=== PATIENT | male | born 1960 | race Caucasian/White ===

== ENCOUNTER 2022-08-20 05:45 | Day surgery (SDC) | payer OTHER ==
[2022-08-17 15:39] VITALS: BMI 30.7
[~2022-08-20 05:45] MED LIST: PROPOFOL 10 MG/ML 20 ML VIAL IV ONE
[2022-08-20] MEDS ORDERED: SODIUM CHLORIDE 0.9% 1,000 ML IV SCH ×2 (06:09→07:45)
[2022-08-20] MEDS ORDERED: SODIUM CHLORIDE 0.9% 1,000 ML IV ONE (06:17)
[2022-08-20] MEDS ORDERED: BENZOCAINE SPRAY 1 CAN TOPICAL ONE ×2 (07:17→07:23)
[2022-08-20] MEDS ORDERED: PROPOFOL 10 MG/ML 20 ML VIAL IV ONE ×2 (07:20→10:36)
[2022-08-20 07:29] VITALS: TEMP 98.2
--- NOTE | 2022-08-20 07:44 | P.PCN ---
Date of Procedure: 08/20/22 Description of Procedure: Indication: Atrial fibrillation Procedure Description: After explaining the procedure to the patient, it's risk and complications, blood pressure, heart rate and O2 saturation were monitored. The throat was sprayed with Cetacaine. Patient received sedation per anesthesia department. The probe was introduced into the esophagus without difficulty. Images were obtained. Following that, the probe was removed. There was no immediate complication. Findings: Left atrial size is severely enlarged, left atrial appendage is normal. The ventricle size is dilated with evidence of severe global hypokinesis, ejection fraction is estimated at 25-30%. The aortic and tricuspid valve appears to be normal. Evidence of mitral valve annuloplasty was noted. Descending thoracic aorta appears to be normal. No pericardial effusion. Contrast bubble study revealed no shunting across the intra-atrial septum. Doppler: Pulse wave and color Doppler were obtained, it revealed mild to moderate mitral regurgitation with mild tricuspid and aortic regurgitation, there was no shunting by color Doppler study. Conclusion: 1. Massively enlarged left atrium with normal appearance of the left atrial appendage 2. Dilated left ventricle with severe global hypokinesis 3. But the valve repair with mild to moderate mitral regurgitation 4. Mild tricuspid and aortic regurgitation 5. No shunting across the interatrial septum Cardioversion: After performing the MIGUEL synchronized biphasic reversion using 200 J, 4 times was not successful in restoring sinus mechanism. There was no immediate complications.
[2022-08-20] MEDS ORDERED: lisinopriL 5 MG TAB PO SCH (09:00)
[2022-08-20] MEDS ORDERED: RIVAROXABAN 20 MG TAB PO SCH (09:00)
[2022-08-20] MEDS ORDERED: SPIRONOLACTONE 25 MG TAB PO SCH (09:00)
[2022-08-20] MEDS ORDERED: LEVOTHYROXINE 75 MCG TAB PO SCH (09:00)
[2022-08-20 09:45] VITALS: RESP 16
[2022-08-20 10:06] VITALS: BP 141/90; PULSE 49
[2022-08-20] MEDS ORDERED: LIDOCAINE 2% INJ 20 MG/ML (2 ML VIAL) ONE (10:36)
== END 2022-08-20 10:07 | disposition home or self-care (01) ==
LOC: CATHCVL 05:45
PROVIDERS: ATTEND Internal Medicine Interventional Cardiology
DX: I42.9 Cardiomyopathy, unspecified (principal); I08.0 Rheumatic disorders of both mitral and aortic valves; E07.9 Disorder of thyroid, unspecified; Z79.01 Long term (current) use of anticoagulants; Z95.1 Presence of aortocoronary bypass graft
CPT/HCPCS: 93312; 93320; 93325; 92960; J2704; J2001

== ENCOUNTER 2022-11-01 08:44 | Emergency (ER) | payer OTHER ==
[2022-11-01 08:53] VITALS: RESP 18
--- NOTE | 2022-11-01 10:11 | ED ---
Headache HPI - General Source: RN notes reviewed Mode of arrival: ambulatory Limitations: no limitations <BatshevaIleana - Last Filed: 11/01/22 10:36> - General Source: patient, RN notes reviewed Mode of arrival: ambulatory Limitations: no limitations <Daniel Herrera - Last Filed: 11/01/22 14:49> <Flo Kessler - Last Filed: 11/01/22 17:06> - General Chief Complaint: Headache Stated Complaint: Headache Time Seen by Provider: 11/01/22 10:07 - History of Present Illness Initial Comments: Patient is a 62 year old male who presents to the emergency department for evaluation of headache. It started just before last year. No head or neck trauma, no falls. Pain is mostly in his forehead until this weekend when it moved to the back of his head and down his shoulders. He denies double vision, blurry vision, eye pain, limb weakness, nausea, vomiting, fever, chills, cold-like symptoms. He had a CT of his brain last week at [facility] which he states was normal. He was treated for sinus infection twice by primary care provider, currently almost done with course of Augmentin. (Ileana Herman) This is a 62-year-old male presents emergency Department chief complaints of a headache. He states that has been going on for several months states of last f ew days as worsened and change in nature. He states that he used to be just frontal aspect he has been treated for acute sinusitis his been having some ongoing congestion but states that the headache is now more diffuse in nature. He does complain of mild aches. Denies any significant cough or cold-like symptoms. Patient states his initially started around the time of his thyroid medication and change in recent atrial fibrillation. Patient denies any relief with [id number] medications this is what presents to emergency room. Dies any visual disturbance denies any significant photophobia or sensitive to sound. Patient denies any focal weakness denies trauma. Patient states he had a CAT scan couple weeks ago and believes he had a CAT scan was out and with contrast. Patient states that he is scheduled to have repeat laboratory studies, follow-up with cardiology and PCP. (Daniel Herrera) - Related Data Home Medications Medication Instructions Recorded Confirmed Rivaroxaban [Xarelto] 20 mg PO DAILY@1800 08/17/22 11/01/22 Spironolactone 25 mg PO DAILY@0600 08/17/22 11/01/22 ALPRAZolam [Xanax] 1 mg PO DAILY PRN 11/01/22 11/01/22 Amoxic-Pot Clav 875-125Mg 1 tab PO BID@0600,1800 11/01/22 11/01/22 [Augmentin 875-125] Cyclobenzaprine [Flexeril] 10 mg PO TID PRN 11/01/22 11/01/22 Empagliflozin [Jardiance] 10 mg PO DAILY@1800 11/01/22 11/01/22 Levothyroxine Sodium 125 mcg PO DAILY@0600 11/01/22 11/01/22 Sacubitril/Valsartan [Entresto 24 1 tab PO BID@0600,1800 11/01/22 11/01/22 mg-26 mg Tablet] carisoprodoL [Soma] 350 mg PO TID PRN 11/01/22 11/01/22 traMADol HCl [Ultram] 50 mg PO Q8H PRN 11/01/22 11/01/22 Allergies Allergy/AdvReac Type Severity Reaction Status Date / Time sumatriptan [From Imitrex] AdvReac Nausea & Verified 11/01/22 12:02 Vomiting Review of Systems ROS Other: All systems not noted in ROS Statement are negative. <Ileana Herman - Last Filed: 11/01/22 10:36> ROS Other: All systems not noted in ROS Statement are negative. <Daniel Herrera - Last Filed: 11/01/22 14:49> ROS Other: All systems not noted in ROS Statement are negative. <Flo Kessler - Last Filed: 11/01/22 17:06> ROS Statement: Those systems with pertinent positive or pertinent negative responses have been documented in the HPI. Past Medical History Past Medical History: Atrial Flutter, Hypertension, Mitral Valve Prolapse (MVP), Thyroid Disorder Additional Past Medical History / Comment(s): HX BATHONELLA ( CAT SCRATCH FEVER),CAUSED VEGATATION TO GROW ON MITRAL VALVE THAT BROKE OFF AND WENT TO KIDNEY AND PART OF BRAIN. PT ENDED UP WITH KIDNEY FAILURE AND HAD TO BE ON DIALYSIS FOR 5 WEEKS. KIDNEY FUNCTION IS BETTER NOW. HEADACHES, History of Any Multi-Drug Resistant Organisms: MRSA Date of last positivie culture/infection: 2007 OR 2008 MDRO Source:: UNK Past Surgical History: Cardiac Valve Replacement, Hernia Repair, Tonsillectomy Additional Past Surgical History / Comment(s): 2008-MITRAL VALVE SX. CARDIOVERSION Past Anesthesia/Blood Transfusion Reactions: No Reported Reaction Past Psychological History: Anxiety Smoking Status: Former smoker Past Alcohol Use History: None Reported Past Drug Use History: Marijuana - Past Family History Mother Family Medical History: No Reported History <Batsheva,Ileana - Last Filed: 11/01/22 10:36> General Exam Limitations: no limitations <BatshevaIleana - Last Filed: 11/01/22 10:36> General appearance: alert, in no apparent distress Head exam: Present: atraumatic, normocephalic, normal inspection Eye exam: Present: normal appearance, PERRL, EOMI. Absent: scleral icterus, conjunctival injection, periorbital swelling ENT exam: Present: normal exam, normal oropharynx, mucous membranes moist, TM's normal bilaterally Neck exam: Present: normal inspection, full ROM. Absent: tenderness, meningismus, lymphadenopathy Respiratory exam: Present: normal lung sounds bilaterally. Absent: respiratory distress, wheezes, rales, rhonchi, stridor Cardiovascular Exam: Present: tachycardia, irregular rhythm, normal heart soun ds. Absent: normal rhythm, systolic murmur, diastolic murmur, rubs, gallop, clicks Neurological exam: Present: alert, oriented X3, CN II-XII intact, reflexes normal, other (Finger to nose intact bilaterally without shooting). Absent: motor sensory deficit Skin exam: Present: warm, dry, intact, normal color. Absent: rash <Daniel Herrera - Last Filed: 11/01/22 14:49> - General Exam Comments Initial Comments: Visual Physical Exam Vital signs reviewed General: Well-appearing, nontoxic, no acute distress. Head: Normocephalic, atraumatic Eyes: PERRLA, EOMI ENT: Airway patent Chest: Nonlabored breathing Skin: No visual rash, normal skin tone Neuro: Alert and oriented 3 Musculoskeletal: No gross abnormalities (Ileana Herman) Course Vital Signs 11/01/22 11/01/22 11/01/22 08:48 12:29 13:42 Temperature 97.7 F Pulse Rate 59 L 45 L Respiratory 18 18 18 Rate Blood Pressure 125/86 96/70 O2 Sat by Pulse 99 97 Oximetry 11/01/22 16:28 Temperature Pulse Rate 74 Respiratory 18 Rate Blood Pressure 107/78 O2 Sat by Pulse 96 Oximetry Medical Decision Making - Lab Data Result diagrams: 11/01/22 12:07 - EKG Data -: EKG Interpreted by Me <Daniel Herrera - Last Filed: 11/01/22 14:49> - Lab Data Result diagrams: 11/01/22 12:07 11/01/22 13:25 <Flo Kessler - Last Filed: 11/01/22 17:06> - Medical Decision Making The patient was endorsed to me pending laboratory work be done. Patient's positive for COVID-19. Patient states his headache is improved down to what it has been recently. There is a musculoskeletal component with reproducibility with palpation over the posterior lateral neck musculature. CT was done at [facility] with printed results showing paranasal sinus disease worse in the maxillary sinuses anterior ethmoid air cells. This was from her report 10/15/22 I did discuss findings the patient and his was present. Patient be discharged to follow-up with her doctor. The patient does have Soma and Flexeril at home he will try this he is on Xarelto and therefore is not to be taking NSAIDs. He will follow-up with his doctor I did recommend follow-up with neurology and/or endocrinology. The patient TSH was noted be elevated.Was pt. sent in by a medical professional or institution (, PA, LICENSED PROSTHETIST/ORTHOTIST, urgent care, hospital, or shelter...) When possible be specific @ -[No] Did you speak to anyone other than the patient for history (EMS, parent, family, police, friend...)? What history was obtained from this source @ -[No] Did you review nursing and triage notes (agree or disagree)? Why? @ -[I reviewed and agree with nursing and triage notes] Were old charts reviewed (outside hosp., previous admission, EMS record, old E KG, old radiological studies, urgent care reports/EKG's, shelter records)? Report findings @ -[ old charts were reviewed] Differential Diagnosis (chest pain, altered mental status, abdominal pain women, abdominal pain men, vaginal bleeding, weakness, fever, dyspnea, syncope, headache, dizziness, GI bleed, back pain, seizure, CVA, palpatations, mental hea lth, musculoskeletal)? @ -[not applicable] EKG interpreted by me (3pts min.). @ -[As above] X-rays interpreted by me (1pt min.). @ -[None done] CT interpreted by me (1pt min.). @ -[None done] U/S interpreted by me (1pt. min.). @ -[None done] What testing was considered but not performed or refused? (CT, X-rays, U/S, labs)? Why? @ -[None] What meds were considered but not given or refused? Why? @ -[None] Did you discuss the management of the patient with other professionals (professionals i.e. , PA, LICENSED PROSTHETIST/ORTHOTIST, lab, RT, psych nurse, social media specialist, roof fitter, teacher, general service officer, upper caser)? Give summary @ -[No] Was smoking cessation discussed for >3mins.? @ -[No] Was critical care preformed (if so, how long)? @ -[No] Were there social determinants of health that impacted care today? How? (Homelessness, low income, unemployed, alcoholism, drug addiction, transportation, low edu. Level, literacy, decrease access to med. care, mcc, rehab)? @ -[No] Was there de-escalation of care discussed even if they declined (Discuss DNR or withdrawal of care, Hospice)? DNR status @ -[No] What co-morbidities impacted this encounter? (DM, HTN, Smoking, COPD, CAD, Cancer, CVA, ARF, Chemo, Hep., AIDS, mental health diagnosis, sleep apnea, morbid obesity)? @ -[None] Was patient admitted / discharged? Hospital course, mention meds given and route, prescriptions, significant lab abnormalities, going to OR and other pertinent info. @ -[hospital course] discharged Undiagnosed new problem with uncertain prognosis? @ -[COVID-19] Drug Therapy requiring intensive monitoring for toxicity (Heparin, Nitro, Insulin, Cardizem)? @ -[No] Were any procedures done? @ -[No] Diagnosis/symptom? @ -[Chronic cephalgia, COVID-19, elevated TSH] Acute, or Chronic, or Acute on Chronic? @ -[Acute on chronic] Uncomplicated (without systemic symptoms) or Complicated (systemic symptoms)? @ -[default] Side effects of treatment? @ -[No] Exacerbation, Progression, or Severe Exacerbation? @ -[No] Poses a threat to life or bodily function? How? (Chest pain, [place], [place], pneumonia, PE, COPD, DKA, ARF, appy, cholecystitis, CVA, Diverticulitis, Homicidal, Suicidal, threat to staff... and all critical care pts) @ -[No] (Flo Kessler) - Lab Data Lab Results 11/01/22 11/01/22 11/01/22 Range/Units 12:07 12:07 12:07 WBC 4.7 (3.8-10.6) k/uL RBC 5.75 (4.30-5.90) m/uL Hgb 17.3 (13.0-17.5) gm/dL Hct 53.1 H (39.0-53.0) % MCV 92.4 (80.0-100.0) fL MCH 30.1 (25.0-35.0) pg MCHC 32.6 (31.0-37.0) g/dL RDW 14.5 (11.5-15.5) % Plt Count 329 (150-450) k/uL MPV 8.4 Neutrophils % 74 % Lymphocytes % 15 % Monocytes % 5 % Eosinophils % 3 % Basophils % 2 % Neutrophils # 3.5 (1.3-7.7) k/uL Lymphocytes # 0.7 L (1.0-4.8) k/uL Monocytes # 0.2 (0-1.0) k/uL Eosinophils # 0.2 (0-0.7) k/uL Basophils # 0.1 (0-0.2) k/uL Sodium (137-145) mmol/L Potassium (3.5-5.1) mmol/L Chloride (98-107) mmol/L Carbon Dioxide (22-30) mmol/L Anion Gap mmol/L BUN (9-20) mg/dL Creatinine (0.66-1.25) mg/dL Est GFR (CKD-EPI)AfAm (>60 ml/min/1.73 sqM) Est GFR (CKD-EPI)NonAf (>60 ml/min/1.73 sqM) Glucose (74-99) mg/dL Calcium (8.4-10.2) mg/dL Magnesium (1.6-2.3) mg/dL Total Bilirubin (0.2-1.3) mg/dL AST (17-59) U/L ALT (4-49) U/L Alkaline Phosphatase (38-126) U/L Total Protein (6.3-8.2) g/dL Albumin (3.5-5.0) g/dL TSH (0.465-4.680) mIU/L Free T4 (0.78-2.19) ng/dL Free T3 pg/mL (2.8-5.3) pg/ml Heterophile Antibody Negative (Negative) Influenza Type A (PCR) Not Detected (Not Detectd) Influenza Type B (PCR) Not Detected (Not Detectd) RSV (PCR) Not Detected (Not Detectd) SARS-CoV-2 (PCR) Detected A (Not Detectd) 11/01/22 Range/Units 13:25 WBC (3.8-10.6) k/uL RBC (4.30-5.90) m/uL Hgb (13.0-17.5) gm/dL Hct (39.0-53.0) % MCV (80.0-100.0) fL MCH (25.0-35.0) pg MCHC (31.0-37.0) g/dL RDW (11.5-15.5) % Plt Count (150-450) k/uL MPV Neutrophils % % Lymphocytes % % Monocytes % % Eosinophils % % Basophils % % Neutrophils # (1.3-7.7) k/uL Lymphocytes # (1.0-4.8) k/uL Monocytes # (0-1.0) k/uL Eosinophils # (0-0.7) k/uL Basophils # (0-0.2) k/uL Sodium 132 L (137-145) mmol/L Potassium 4.4 (3.5-5.1) mmol/L Chloride 102 (98-107) mmol/L Carbon Dioxide 25 (22-30) mmol/L Anion Gap 5 mmol/L BUN 14 (9-20) mg/dL Creatinine 0.96 (0.66-1.25) mg/dL Est GFR (CKD-EPI)AfAm >90 (>60 ml/min/1.73 sqM) Est GFR (CKD-EPI)NonAf 85 (>60 ml/min/1.73 sqM) Glucose 90 (74-99) mg/dL Calcium 8.5 (8.4-10.2) mg/dL Magnesium 2.0 (1.6-2.3) mg/dL Total Bilirubin 1.0 (0.2-1.3) mg/dL AST 24 (17-59) U/L ALT 23 (4-49) U/L Alkaline Phosphatase 46 (38-126) U/L Total Protein 6.0 L (6.3-8.2) g/dL Albumin 3.6 (3.5-5.0) g/dL TSH 24.900 H (0.465-4.680) mIU/L Free T4 1.08 (0.78-2.19) ng/dL Free T3 pg/mL 3.1 (2.8-5.3) pg/ml Heterophile Antibody (Negative) Influenza Type A (PCR) (Not Detectd) Influenza Type B (PCR) (Not Detectd) RSV (PCR) (Not Detectd) SARS-CoV-2 (PCR) (Not Detectd) - EKG Data EKG Comments: EKG performed at 13:54 A. fib with a rate of 57 QRS 119 QT/QTC 436/4:30 (Daniel Herrera) Disposition <Ileana Herman - Last Filed: 11/01/22 10:36> <Daniel Herrera - Last Filed: 11/01/22 14:49> Is patient prescribed a controlled substance at d/c from ED?: No Decision Date: 11/01/22 Decision Time: 17:06 <Flo Kessler - Last Filed: 11/01/22 17:06> Clinical Impression: COVID-19, Cephalgia, Elevated TSH Disposition: HOME SELF-CARE Condition: Good Instructions (If sedation given, give patient instructions): Acute Headache (ED), Coronavirus Disease 2019 (COVID-19) Referrals: Flo Lugo MD [Primary Care Provider] - 1-2 days
[2022-11-01] MEDS ORDERED: diphenhydrAMINE 50 MG/ML 1 ML VIAL IVP STA (11:32)
[2022-11-01] MEDS ORDERED: ACETAMINOPHEN IV (For NPO) 1,000 MG in EMPTY BAG 1 BAG IVPB STA (11:33)
[2022-11-01] MEDS ORDERED: SODIUM CHLORIDE 0.9% 500 ML 500 ML IV ONE (11:33)
[2022-11-01 12:32] LABS: Basophils # (A) 0.1 k/uL (0-0.2); Basophils % (A) 2 %; Eosinophils # (A) 0.2 k/uL (0-0.7); Eosinophils % (A) 3 %; HCT 53.1 % (39.0-53.0); HGB 17.3 gm/dL (13.0-17.5); Lymphocytes # (A) 0.7 k/uL (1.0-4.8); Lymphocytes % (A) 15 %; MCH 30.1 pg (25.0-35.0); MCHC 32.6 g/dL (31.0-37.0); MCV 92.4 fL (80.0-100.0); Mean Platelet Volume 8.4; Monocytes # (A) 0.2 k/uL (0-1.0); Monocytes % (A) 5 %; Neutrophils # (A) 3.5 k/uL (1.3-7.7); Neutrophils % (A) 74 %; Platelet Count 329 k/uL (150-450); RBC 5.75 m/uL (4.30-5.90); RDW 14.5 % (11.5-15.5); WBC 4.7 k/uL (3.8-10.6)
[2022-11-01 14:56] LABS: ALT 23 U/L (4-49); AST 24 U/L (17-59); African American GFR (CKD) >90 (>60 ml/min/1.73 sqM); Albumin 3.6 g/dL (3.5-5.0); Alkaline Phosphatase 46 U/L (38-126); Anion Gap 5 mmol/L; Blood Urea Nitrogen 14 mg/dL (9-20); Calcium 8.5 mg/dL (8.4-10.2); Carbon Dioxide 25 mmol/L (22-30); Chloride 102 mmol/L (98-107); Glucose 90 mg/dL (74-99); Non-African American GFR(CKD) 85 (>60 ml/min/1.73 sqM); Potassium 4.4 mmol/L (3.5-5.1); Sodium 132 mmol/L (137-145)
[2022-11-01 15:13] LABS: T4, Free (Free Thyroxine) 1.08 ng/dL (0.78-2.19)
[2022-11-01 17:24] VITALS: BP 98/63; PULSE 59; TEMP 97.5
== END 2022-11-01 17:20 | disposition home or self-care (01) ==
LOC: EC 08:44
DX: U07.1 COVID-19 (principal); R51.9 Headache, unspecified; R94.6 Abnormal results of thyroid function studies; I10 Essential (primary) hypertension; E07.9 Disorder of thyroid, unspecified; F41.9 Anxiety disorder, unspecified; Z87.891 Personal history of nicotine dependence; F12.90 Cannabis use, unspecified, uncomplicated; Z79.890 Hormone replacement therapy; Z79.899 Other long term (current) drug therapy; Z88.8 Allergy status to other drugs, medicaments and biological substances; Z20.822 Contact with and (suspected) exposure to COVID-19
CPT/HCPCS: 36415; 93005; 84439; 84481; 80053; 83735; 84443; 85025; 86308; 87636; 99284; 96365; 96375 ×2; J1200; J0131; J1790